=== PATIENT | female | born 1995 | race Caucasian/White ===

== ENCOUNTER 2018-09-28 19:50 | Emergency (ER) | payer OTHER ==
[2018-09-28 21:33] LABS: ABS Basophils 0 10^3/ul (0-0.2); ABS Eosinophils 0.1 10^3/ul (0-0.6); ABS Lymphocytes 3.7 10^3/ul (1.0-4.8); ABS Monocytes 0.4 10^3/ul (0-0.8); ABS Neutrophils 3.7 10^3/ul (1.5-7.7); ABS Nucleated RBC 0 10^3/ul; Eosinophil % 1.4 %; Hematocrit 43 % (33-41); Hemoglobin 14.8 g/dL (12.0-16.0); Lymphocyte % 46.6 %; Mean Corpuscular HGB Conc 34 g/dL (31-36); Mean Corpuscular Hemoglobin 32 pg (27-31); Mean Corpuscular Volume 94 fL (80-97); Mean Platelet Volume 7.1 fL (7.4-10.4); Nucleated Red Blood Cells % 0.1; Platelet Count 233 10^3/uL (150-450); Red Blood Count 4.62 10^6 /uL (3.70-4.87); Red Cell Distribution Width 13 % (10.5-15)
[2018-09-28 21:43] LABS: ALT 15 U/L (7-52); AST 16 U/L (13-39); Albumin 4.7 g/dL (3.2-5.2); Albumin/Globulin Ratio 1.8 (1-3); Alkaline Phosphatase 112 U/L (34-104); Anion Gap 6 mmol/L (2-11); BUN/Creatinine Ratio 11.8 (8-20); Blood Urea Nitrogen 8 mg/dL (6-24); CO2 Carbon Dioxide 29 mmol/L (22-32); Calcium 9.7 mg/dL (8.6-10.3); Chloride 104 mmol/L (101-111); EGFR African American 132.2 (>60); EGFR Non-African American 109.2 (>60); Globulin 2.6 g/dL (2-4); Glucose 91 mg/dL (70-100); Potassium 4.3 mmol/L (3.5-5.0); Sodium 139 mmol/L (135-145); Total Protein 7.3 g/dL (6.4-8.9)
[2018-09-28 21:49] LABS: HCG Pregnancy < 0.60 mIU/mL
--- NOTE | 2018-09-28 22:02 | ED ---
Syncope/Near Syncope - HPI Summary HPI Summary: Pt is a 23 y/o female who presents to the ED s/p near-syncope. Today at 16:30 she felt near-syncopal, and denies any LOC. Pt had tinnitus and blackened vision that was worsening until she couldnt see or hear her surroundings. She also notes that starting about 10 months ago shes had intermittent numbness of her right face, RUE, and RLE. Pt has had an MRI, bloodwork, and neurology consult in [place] without a diagnosis. She was instructed to have a spinal MRI but this never happened because her symptoms resolved 2 months ago. However , 2 days ago she began to have the numbness again. Pt notes that occasionally she will have some mild aphasia with her numbness. She denies any headache or diplopia. Her mother notes that she herself has intermittent episodes of numbness without a diagnosis. Pt denies any recent illness or Lyme disease. She had one prior episode of syncope but this was exercise induced. Pt had two glasses of wine yesterday. - History Of Current Complaint Chief Complaint: EDNeurologicalDeficit Time Seen by Provider: 09/28/18 21:54 Hx Obtained From: Patient, Family/Grease Maker Head - Mother Onset/Duration: Gradual Onset, Lasting Weeks - 10 months, Resolved Timing: Hours - At 16:30 today Associated Head Trauma: No Aggravating Factor(s): Nothing Alleviating Factor(s): Spontaneous Resolution Associated Signs And Symptoms: Numbness, Other - tinnitus, blackened vision Related History: Similar Episode/Dx as - intermittent R-sided numbness for 10 months - Allergies/Home Medications Allergies/Adverse Reactions: Allergies Allergy/AdvReac Type Severity Reaction Status Date / Time egg Allergy See Comment Verified 09/28/18 20:11 Home Medications: Home Medications NK [No Home Medications Reported] 09/28/18 [History Confirmed 09/28/18] PMH/Surg Hx/FS Hx/Imm Hx Endocrine/Hematology History: Denies: Hx Diabetes Cardiovascular History: Denies: Hx Hypertension Infectious Disease History: No Infectious Disease History: Denies: Traveled Outside the [place] in Last 30 Days - Family History Known Family History: Positive: Other - mother - numbness/paresthesia - Social History Alcohol Use: Occasionally Hx Substance Use: No Substance Use Type: Reports: None Hx Tobacco Use: No Smoking Status (MU): Never Smoked Tobacco Review of Systems Positive: Other - blackened vision - resolved. Negative: Diplopia Positive: Other - tinnitus - resolved Neurological: Other - occasional aphasia Positive: Numbness - right face, arm, leg, Syncope - near. Negative: Headache All Other Systems Reviewed And Are Negative: Yes Physical Exam - Summary Physical Exam Summary: Appearance: well appearing, no pain distress Skin: warm, dry, reflects adequate perfusion Head/face: normal Eyes: EOMI, AL ENT: mucous membranes moist Neck: supple, non-tender Respiratory: CTA, breath sounds present Cardiovascular: RRR, pulses symmetrical Abdomen: non-tender, soft Bowel Sounds: present Musculoskeletal: normal, strength/ROM intact Neuro: A&Ox3, decreased sensation of right mid-face, right dorsal hand, and right foot Triage Information Reviewed: Yes Vital Signs On Initial Exam: Initial Vitals Temp Pulse Resp BP Pulse Ox 98.5 F 61 16 123/76 98 09/28/18 20:06 09/28/18 20:06 09/28/18 20:06 09/28/18 20:06 09/28/18 20:06 Vital Signs Reviewed: Yes - Irene Coma Scale Best Eye Response: 4 - Spontaneous Best Motor Response: 6 - Obeys Commands Best Verbal Response: 5 - Oriented Coma Scale Total: 15 Diagnostics - Vital Signs Vital Signs Temp Pulse Resp BP Pulse Ox 09/28/18 20:06 98.5 F 61 16 123/76 98 - Laboratory Lab Results: Lab Results 09/28/18 09/28/18 Range/Units 21:18 21:18 WBC 8.0 (3.5-10.8) 10^3/uL RBC 4.62 (3.70-4.87) 10^6 /uL Hgb 14.8 (12.0-16.0) g/dL Hct 43 H (33-41) % MCV 94 (80-97) fL MCH 32 H (27-31) pg MCHC 34 (31-36) g/dL RDW 13 (10.5-15) % Plt Count 233 (150-450) 10^3/uL MPV 7.1 L (7.4-10.4) fL Neut % (Auto) 46.2 % Lymph % (Auto) 46.6 % Sutter % (Auto) 5.5 % Eos % (Auto) 1.4 % Baso % (Auto) 0.3 % Absolute Neuts (auto) 3.7 (1.5-7.7) 10^3/ul Absolute Lymphs (auto) 3.7 (1.0-4.8) 10^3/ul Absolute Monos (auto) 0.4 (0-0.8) 10^3/ul Absolute Eos (auto) 0.1 (0-0.6) 10^3/ul Absolute Basos (auto) 0 (0-0.2) 10^3/ul Absolute Nucleated RBC 0 10^3/ul Nucleated RBC % 0.1 Sodium 139 (135-145) mmol/L Potassium 4.3 (3.5-5.0) mmol/L Chloride 104 (101-111) mmol/L Carbon Dioxide 29 (22-32) mmol/L Anion Gap 6 (2-11) mmol/L BUN 8 (6-24) mg/dL Creatinine 0.68 (0.51-0.95) mg/dL Est GFR ( Amer) 132.2 (>60) Est GFR (Non-Af Amer) 109.2 (>60) BUN/Creatinine Ratio 11.8 (8-20) Glucose 91 (70-100) mg/dL Calcium 9.7 (8.6-10.3) mg/dL Total Bilirubin 0.30 (0.2-1.0) mg/dL AST 16 (13-39) U/L ALT 15 (7-52) U/L Alkaline Phosphatase 112 H (34-104) U/L Total Protein 7.3 (6.4-8.9) g/dL Albumin 4.7 (3.2-5.2) g/dL Globulin 2.6 (2-4) g/dL Albumin/Globulin Ratio 1.8 (1-3) Beta HCG, Quant < 0.60 mIU/mL Result Diagrams: 09/28/18 21:18 09/28/18 21:18 Lab Statement: Any lab studies that have been ordered have been reviewed, and results considered in the medical decision making process. - EKG 21:21 Cardiac Rate: Bradycardia - 54 bpm EKG Rhythm: Sinus Bradycardia ST Segment: Normal Summary of EKG Findings: Nl axis, nl intervals National Institutes Of Health - NIH Scale Level of Consciousness: Alert/Keenly Responsive Ask Patient the Month and His/Her Age: Both Correct Ask Pt to Open/Close Eyes and Lugger/Release Non-Paretic Hand: Both Correctly Best Gaze (Only Horizontal Eye Movement): Normal Visual Field Testing: No Visual Loss Facial Paresis-Pt to Smile & Close Eyes or Grimace Symmetry: Normal/Symmetrical Motor Function - Right Arm: No Drift-Holds 10 Seconds Motor Function - Left Arm: No Drift-Holds 10 Seconds Motor Function - Right Leg: No Drift-Holds 10 Seconds Motor Function - Left Leg: No Drift-Holds 10 Seconds Limb Ataxia-Must be out of Proportion to Weakness Present: Absent Sensory (Use Pinprick to Test Arms/Legs/Trunk/Face): Pinprick Less on Affected Best Language (Describe Picture, Name Items): No Aphasia Dysarthria (Read Several Words): Normal Extinction and Inattention: No Abnormality Total Score: 1 Course/Dx Course Of Treatment: Nurse's notes reviewed. Patient with history of syncope/ near syncope and also right-sided numbness resents with similar symptoms today. She has previously been worked up for this to include an MRI. She has seen neurology. Exam today is benign other than some subjective spotty patches of paresthesia on her right side. Her laboratories are normal as is her EKG. She will begin follow-up with neurology locally as well as her neurologist back home. Discharged in good condition. - Diagnoses Differential Diagnosis/HQI/PQRI: Positive: Hypoglycemia, Hypovolemia, Metabolic Reaction, Vasovagal Episode, Other - Lyme disease, MS Provider Diagnoses: Near syncope, Paresthesia Discharge - Sign-Out/Discharge Documenting (check all that apply): Patient Departure - Discharge Patient Received Moderate/Deep Sedation with Procedure: No - Discharge Plan Condition: Improved Disposition: HOME Patient Education Materials: Paresthesia (ED) Referrals: [facility] [Provider Group] William Castaneda MD [Medical Doctor] - Additional Instructions: Stay well-hydrated. Avoid alcohol, caffeine. If you feel weak/lightheaded sit or lie down. Do not drive while having symptoms. Call the neurologist on Monday to schedule prompt follow-up. Return if worse, new symptoms or other concerns. You likely will need more outpatient testing. - Billing Disposition and Condition Condition: IMPROVED Disposition: Home - Attestation Statements Document Initiated by Scribe: Yes Documenting Scribe: Marisel Niño Provider For Whom Scribe is Documenting (Include Credential): Tony Bolden MD Scribe Attestation: IMarisel, scribed for Tony Bolden MD on 09/29/18 at 0030. Scribe Documentation Reviewed: Yes Provider Attestation: The documentation as recorded by the scribe, Marisel Niño accurately reflects the service I personally performed and the decisions made by me, Tony Bolden MD Status of Scribe Document: Viewed
[2018-09-28 22:40] VITALS: BP 107/58
== END 2018-09-28 22:39 | disposition home or self-care (01) ==
LOC: ED 19:50
DX: R55 Syncope and collapse (principal); R20.2 Paresthesia of skin; R47.01 Aphasia; H93.19 Tinnitus, unspecified ear; H53.8 Other visual disturbances; R00.1 Bradycardia, unspecified; Z91.012 Allergy to eggs
CPT/HCPCS: 36415; 80053; 84702; 85025; 93005; 99282